=== PATIENT | male | born 1995 | race African-American/Black ===

== ENCOUNTER 2018-06-16 16:50 | Emergency (ER) | payer OTHER ==
--- NOTE | 2018-06-16 16:54 | PDOC ---
Rapid Medical Evaluation Time Seen by Provider: 06/16/18 16:52 Medical Evaluation: I have performed a brief in-person evaluation of this patient. The patient presents with a chief complaint of: painful hemorrhoid x few days. no bleeding Pertinent physical exam findings: did not exam in the triage I have ordered the following: nothing The patient will proceed to the ED for further evaluation. Discharge Disposition - Diagnosis Hemorrhoid - Referrals Referrals: Melvin Ornelas [Primary Care Provider] - - Patient Instructions - Post Discharge Activity
[2018-06-16 17:09] VITALS: BP 130/76; PULSE 88; TEMP 98.6; BMI 22.5
--- NOTE | 2018-06-16 17:54 | PDOC ---
History of Present Illness - General Chief Complaint: Hemorrhoids Stated Complaint: Hemorrhoids Time Seen by Provider: 06/16/18 16:52 - History of Present Illness Initial Comments: 23-year-old male without comorbidities presents for evaluation of hemorrhoids times one week. Associated with pain during bowel movement no other associated symptoms. No blood stool 06/16/18 17:51 Past History - Past Medical History Allergies/Adverse Reactions: Allergies Allergy/AdvReac Type Severity Reaction Status Date / Time No Known Allergies Allergy Verified 06/16/18 16:53 Home Medications: Ambulatory Orders Docusate Sodium [Colace] 100 mg PO BID #60 capsule 06/16/18 Hydrocortisone Acetate [Anusol Hc Suppository -] 25 mg RC BID #28 supp.rect 11/02 COPD: No DVT: No Dementia: No Other medical history: HEMORROIDS - Immunization History Immunization Up to Date: Yes - Suicide/Smoking/Psychosocial Hx Smoking History: Never smoked Hx Alcohol Use: No Drug/Substance Use Hx: Yes (MARIJUANA) Substance Use Type: None Review of Systems - Review of Systems ABD/GI: Yes: See HPI All Other Systems: Reviewed and Negative *Physical Exam - Vital Signs Last Vital Signs Temp Pulse Resp BP Pulse Ox 98.6 F 88 17 130/76 99 06/16/18 16:54 06/16/18 16:54 06/16/18 16:54 06/16/18 16:54 06/16/18 16:54 - Physical Exam Comments: There is a large hemorrhoid about 0.5 cm in circumference at a benign a clock position about the anus. Normal surrounding skin color and temperature of the hemorrhoid is clean and dry without blood 06/16/18 17:52 *DC/Admit/Observation/Transfer Diagnosis at time of Disposition: Hemorrhoid - Discharge Dispostion Disposition: HOME Condition at time of disposition: Stable Decision to Admit order: No - Prescriptions Prescriptions: Docusate Sodium [Colace] 100 mg PO BID #60 capsule Hydrocortisone Acetate [Anusol Hc Suppository -] 25 mg RC BID #28 supp.rect - Referrals Referrals: Melvin Ornelas [Primary Care Provider] - Janay Carnes MD [Staff Physician] - - Patient Instructions Printed Discharge Instructions: DI for Hemorrhoids Additional Instructions: Please use the medication as directed. Return to the emergency room should symptoms worsen or go unresolved. Please follow-up with your primary care provider as well as the green energy marketing analyst I have recommended for you in one to 2 days for further evaluation and treatment options. High-fiber diet and plenty of water intake will help TEG her symptoms as well in addition to the medication I've given you. I've given you a stool softener and it rectal suppository - Post Discharge Activity
== END 2018-06-16 18:16 | disposition home or self-care (01) ==
LOC: JERFT 16:50 → JER 16:50 → JERFT 18:16
DX: K64.4 Residual hemorrhoidal skin tags (principal)
CPT/HCPCS: 99281-25